=== PATIENT | female | born 1980 | race Caucasian/White ===

== ENCOUNTER 2018-06-12 17:15 | Emergency (ER) | payer BC ==
[~2018-06-12] VITALS: Ht 149.9 cm; Wt 88.9 kg
[2018-06-12 17:27] VITALS: BP 153/77
--- NOTE | 2018-06-12 17:37 | NUR ---
PATIENT AMB. TO BED #9
[2018-06-12 18:06] LABS: APPEARANCE,URINE CLEAR (CLEAR); BILIRUBIN,URINE NEGATIVE (NEGATIVE); BLOOD, URINE NEGATIVE (NEGATIVE); COLOR,URINE YELLOW (YELLOW); LEUKOCYTE ESTERASE ,URINE NEGATIVE (NEGATIVE); NITRITE, URINE NEGATIVE (NEGATIVE); PH,URINE 6.5 (5.0-9.0); UGLUCOSE NEGATIVE (NEGATIVE)
[2018-06-12 18:12] LABS: BARBITURATE, URINE NEG. ng/ml (NEG <=200); BENZODIAZEPINE, URINE NEG. ng/mL (NEG <=200); CANNABINOID, URINE NEG. ng/mL (NEG <=50); COCAINE, URINE NEG. ng/mL (NEG <=300); OPIATE, URINE NEG. ng/mL (NEG <=2000); PHENCYCLIDINE SCREEN,URINE NEG. ng/mL (NEG <=25)
--- NOTE | 2018-06-12 18:32 | NUR ---
PATIENT PRESENTS TO ED WITH C/O LOWER BACK PAIN WITH BURNING AND UPON VOIDING X1 WK DENIES INJURY DENIES N/V/D; SKIN IS PINK/WARM/DRY; AAOX4 WITH EVEN AND STEADY GAIT; LUNGS CLEAR BL; HR EVEN AND REGULAR; PT DENIES ANY FEVER, CP, SOB, OR COUGH AT THIS TIME; PATIENT STATES PAIN OF 7/10 AT THIS TIME; VSS; PATIENT POSITIONED FOR COMFORT; HOB ELEVATED; BEDRAILS UP X2; BED DOWN. ER MD MADE AWARE OF PT STATUS.
[2018-06-12 18:45] LABS: BASOPHILS % (AUTO) 0.1 % (0.0-2.0); EOSINOPHILS # (AUTO) 0.1 K/uL (0-0.4); EOSINOPHILS % (AUTO) 1.2 % (0.0-4.0); HEMOGLOBIN 7.9 g/dL (12.0-16.0); LYMPHOCYTES # (AUTO) 2.6 K/uL (2.5-16.5); LYMPHOCYTES % (AUTO) 36.1 % (20.5-51.1); MEAN CORPUSCULAR HEMOGLOBIN 18 pg (27-31); MEAN CORPUSCULAR HGB CONC 29 g/dL (33-37); MEAN CORPUSCULAR VOLUME 62.6 fL (80-94); MONOCYTES # (AUTO) 0.4 K/uL (0.8-1.0); MONOCYTES % (AUTO) 5.3 % (1.7-9.3); NEUTROPHILS # (AUTO) 4.1 K/uL (1.8-7.7); NEUTROPHILS % (AUTO) 57.3 % (42.2-75.2); PLATELET COUNT (AUTO) 331 K/uL (140-450); RED BLOOD CELL COUNT(AUTO) 4.32 MIL/uL (4.20-5.40); RED CELL DISTRIBUTION WIDTH 18.7 % (11.6-13.7); WHITE BLOOD COUNT (AUTO) 7.1 K/uL (4.8-10.8)
--- NOTE | 2018-06-12 18:57 | NUR ---
US AT BEDSIDE
[2018-06-12 19:01] LABS: PROTHROMBIN TIME 9.7 secs (10.8-13.4)
--- NOTE | 2018-06-12 19:02 | NUR ---
ultrasound at bedside
--- NOTE | 2018-06-12 19:07 | NUR ---
ASSUMED CARE OF PT FROM JONATHAN BECK
[2018-06-12 19:09] LABS: ALBUMIN 3.7 g/dL (3.4-5.0); ANION GAP 13.6 (8-16); CARBON DIOXIDE 23.1 mmol/L (21-32); CREATININE 0.6 mg/dL (0.6-1.3); MAGNESIUM 1.9 mg/dL (1.8-2.4); POTASSIUM 3.7 mmol/L (3.5-5.1); TOTAL BILIRUBIN 0.2 mg/dL (0.0-1.0); URIC ACID 2.5 mg/dL (2.6-7.2)
[2018-06-12 19:36] VITALS: BP 149/79
--- NOTE | 2018-06-12 19:57 | NUR ---
PT STATES HER RIDE IS READY TO LEAVE AND PT WANTS TO AMA AT THIS TIME, LEANDRA HERNANDEZ MADE AWARE.
--- NOTE | 2018-06-12 20:00 | NUR ---
Patient does not wish to proceed with medical care recommended by DR BELLE. Patient given information related to possible complications, up to and including , which could occur as a result of leaving hospital at this time. Patient verbalizes understanding of risks involved leaving against medical advice. Patient has signed AMA form.
== END 2018-06-12 20:00 | disposition left against medical advice (07) ==
LOC: MED 17:15
DX: M79.661 Pain in right lower leg (principal); M79.662 Pain in left lower leg; F15.10 Other stimulant abuse, uncomplicated; R35.0 Frequency of micturition; R30.9 Painful micturition, unspecified; R39.15 Urgency of urination; Z79.01 Long term (current) use of anticoagulants; Z86.718 Personal history of other venous thrombosis and embolism; Z91.040 Latex allergy status
CPT/HCPCS: 36415; 71045; 80053; 80305; 81003; 81025; 83735; 84484; 84550; 85025; 85379; 85610; 85730; 93005; 93970; 99284; Q0092